=== PATIENT | female | born 1995 | race Caucasian/White ===

== ENCOUNTER → 2021-05-18 | Outpatient (CLI) | payer OTHER | LOC: LAB 12:24 | DX: U07.1 COVID-19 (principal) ==

== ENCOUNTER → 2023-11-21 | Outpatient (REF) | payer OTHER ==
[~2023-11-21] MED LIST: ABILIFY 15MG TA15 MG PO; PRILOSEC 20MG20 MG PO
== END ==
LOC: LAB 12:23
DX: A08.4 Viral intestinal infection, unspecified (principal)

== ENCOUNTER 2023-12-01 18:06 | Emergency (ER) | payer OTHER ==
[~2023-12-01] VITALS: Ht 165.1 cm; Wt 67.7 kg
[2023-12-01] MEDS ORDERED: Ondansetron 4 MG/2 ML VIAL IV ONE (18:30)
[2023-12-01] MEDS ORDERED: NS 1,000 ML IV SCH (18:30)
[2023-12-01 18:42] LABS: BASO # 0.02 K/mm3 (0.02-0.10); EOS # 0.03 K/mm3 (0.04-0.40); EOS % 0.3 % (1.0-5.0); HEMOGLOBIN 13.6 g/dL (12.5-16.0); LYMPH# 2.16 K/mm3 (1.50-4.00); MEAN CELL VOLUME 90 fl (78-100); MEAN CORPUSCULAR HEMOGLOBIN 30 pg (27-31); MEAN CORPUSCULAR HGB CONC 33 g/dL (33-37); MEAN PLATELET VOLUME 9.9 fl (7.4-10.4); MONO # 0.37 K/mm3 (0.20-0.80); NEU # 7.01 K/mm3 (1.40-6.50); PLATELET COUNT 249 K/mm3 (130-400); RED BLOOD COUNT 4.54 M/mm3 (4.10-5.30); RED CELL DISTRIBUTION WIDTH 11.7 % (11.5-14.5); WHITE BLOOD COUNT 9.6 K/mm3 (4.8-10.8)
[2023-12-01 18:49] LABS: ALBUMIN 4.7 g/dL (3.5-5.0)
[2023-12-01 18:51] LABS: CALCIUM 9.9 mg/dL (8.3-10.5)
[2023-12-01 18:52] LABS: TOTAL PROTEIN 7.4 g/dL (6.4-8.3)
[2023-12-01 18:54] LABS: TOTAL BILIRUBIN 0.8 mg/dL (0.2-1.2)
[2023-12-01] MEDS ORDERED: Ketorolac 30 MG/ML VIAL IV ONE (19:45)
[2023-12-01] MEDS ORDERED: KETOROLAC10 MG PO (20:43)
[2023-12-01] MEDS ORDERED: Home Ketorolac 10 MG #4 TABS/PACK PO ONE (20:45)
[2023-12-01 21:03] VITALS: BP 108/77
== END 2023-12-01 21:04 | disposition home or self-care (01) ==
LOC: ED 18:06
PROVIDERS: Family Medicine
DX: G44.201 Tension-type headache, unspecified, intractable (principal); R11.2 Nausea with vomiting, unspecified; Z91.040 Latex allergy status
CPT/HCPCS: J1885; J2405; J7030

== ENCOUNTER → 2024-02-01 | Outpatient (CLI) | payer OTHER ==
[~2024-02-01] MED LIST changes: +KETOROLAC10 MG PO
[2024-02-01 11:47] LABS: BASO # 0.02 K/mm3 (0.02-0.10); EOS # 0.04 K/mm3 (0.04-0.40); EOS % 0.8 % (1.0-5.0); HEMATOCRIT 43.4 % (37.0-47.0); HEMOGLOBIN 14.1 g/dL (12.5-16.0); LYMPH# 1.43 K/mm3 (1.50-4.00); MEAN CELL VOLUME 93 fl (78-100); MEAN CORPUSCULAR HEMOGLOBIN 30 pg (27-31); MEAN CORPUSCULAR HGB CONC 33 g/dL (33-37); MEAN PLATELET VOLUME 9.8 fl (7.4-10.4); MONO # 0.17 K/mm3 (0.20-0.80); NEU # 3.07 K/mm3 (1.40-6.50); PLATELET COUNT 221 K/mm3 (130-400); RED BLOOD COUNT 4.66 M/mm3 (4.10-5.30); RED CELL DISTRIBUTION WIDTH 11.9 % (11.5-14.5); WHITE BLOOD COUNT 4.7 K/mm3 (4.8-10.8)
[2024-02-01 11:51] LABS: ALBUMIN 4.5 g/dL (3.5-5.0); SODIUM 139 mmol/L (136-145)
[2024-02-01 11:52] LABS: CALCIUM 9.4 mg/dL (8.3-10.5)
[2024-02-01 11:53] LABS: GLUCOSE 87 mg/dL (65-105)
[2024-02-01 11:55] LABS: CARBON DIOXIDE 22 mmol/L (22-29); TOTAL BILIRUBIN 0.7 mg/dL (0.2-1.2)
[2024-02-01 11:59] LABS: AST-SGOT 13 U/L (5-34)
[2024-02-01 12:00] LABS: ALT/SGPT 6 U/L (0-55)
[2024-02-01 12:12] LABS: D-DIMER 0.24 mg/L FEU (0.15-0.50)
[2024-02-01 12:14] LABS: TROPONIN-I < 0.030 ng/mL (0.00-0.033)
== END ==
LOC: LAB 11:17
PROVIDERS: Nurse Practitioner Family
DX: R07.9 Chest pain, unspecified (principal)

== ENCOUNTER → 2024-05-11 | Outpatient (CLI) | payer OTHER ==
[~2024-05-11] MED LIST changes: +MACROBID 100 M100 MG PO; +ZOFRAN ODT4 MG PO
[2024-05-11 18:51] LABS: BASO # 0.01 K/mm3 (0.02-0.10); EOS # 0.09 K/mm3 (0.04-0.40); EOS % 1.2 % (1.0-5.0); HEMATOCRIT 40.5 % (37.0-47.0); HEMOGLOBIN 13.2 g/dL (12.5-16.0); LYMPH# 2.18 K/mm3 (1.50-4.00); MEAN CELL VOLUME 93 fl (78-100); MEAN CORPUSCULAR HEMOGLOBIN 30 pg (27-31); MEAN CORPUSCULAR HGB CONC 33 g/dL (33-37); MEAN PLATELET VOLUME 10.1 fl (7.4-10.4); MONO # 0.45 K/mm3 (0.20-0.80); NEU # 4.69 K/mm3 (1.40-6.50); PLATELET COUNT 223 K/mm3 (130-400); RED BLOOD COUNT 4.34 M/mm3 (4.10-5.30); RED CELL DISTRIBUTION WIDTH 12.3 % (11.5-14.5); WHITE BLOOD COUNT 7.4 K/mm3 (4.8-10.8)
[2024-05-11 18:59] LABS: ALBUMIN 4.4 g/dL (3.5-5.0)
[2024-05-11 19:00] LABS: CALCIUM 9.5 mg/dL (8.3-10.5)
[2024-05-11 19:02] LABS: TOTAL PROTEIN 6.8 g/dL (6.4-8.3)
[2024-05-11 19:04] LABS: TOTAL BILIRUBIN 0.3 mg/dL (0.2-1.2)
== END ==
LOC: LAB 18:24
PROVIDERS: Family Medicine
DX: M10.9 Gout, unspecified (principal); I10 Essential (primary) hypertension; E78.5 Hyperlipidemia, unspecified

== ENCOUNTER → 2024-05-13 | Outpatient (CLI) | payer OTHER | LOC: RAD 12:05 | DX: R22.31 Localized swelling, mass and lump, right upper limb (principal) ==

== ENCOUNTER → 2024-05-24 | Outpatient (CLI) | payer OTHER | LOC: LAB 09:04 | DX: R79.82 Elevated C-reactive protein (CRP) (principal) ==